=== PATIENT | female | born 1980 | race Caucasian/White ===

== ENCOUNTER → 2021-03-04 15:55 | Observation (INO) ==
[2021-03-04 13:20] LABS: Bacteria,Urine Few per hpf (None-Few); Bilirubin,Urine Negative (Negative); Blood,Urine Negative (Negative); Clarity,Urine Clear (Clear); Color,Urine Light-Yellow (Yellow); Glucose,Urine (UA) 50 mg/dL (Normal); Ketones,Urine Negative (Negative); Leukocyte Esterase,Urine Negative (Negative); Mucus,Urine Few per lpf (None-Few); Nitrite,Urine Negative (Negative); PH,Urine 6.5 pH Units (5.0-8.0); Protein,Urine Negative (Neg-Trace); RBC,Urine 0-3 per hpf (0-3); Specific Gravity,Urine 1.013 (1.010-1.025); Squamous Epithelial Cell,Urine Few per hpf (None-Few); WBC,Urine 0-3 per hpf (0-3)
[2021-03-04 15:17] LABS: Hematocrit 36.4 % (35.3-44.9); Hemoglobin 11.7 g/dL (11.5-15.4); Mean Corpuscular HGB Conc 32.1 g/dL (31.6-35.5); Mean Corpuscular Hemoglobin 27.7 pg (28.0-33.3); Mean Corpuscular Volume 86.3 fL (83.0-100.0); Mean Platelet Volume 10.6 fL (9.4-12.4); Platelet Count 205 K/mcL (140-400); Red Blood Count 4.22 M/mcL (3.82-4.97); Red Cell Distribution Width 12.9 % (11.5-14.5); White Blood Count 11.1 K/mcL (4.3-11.1)
[~2021-03-04 15:55] MED LIST: 0.9 % Sodium Chloride 1,000 ML IVC ONE; 0.9 % Sodium Chloride 1,000 ML ONE
== END | disposition home or self-care (01) ==
LOC: 1NENULAB
PROVIDERS: ADMIT Obstetrics & Gynecology; ATTEND Obstetrics & Gynecology

== ENCOUNTER 2021-04-10 06:55 | Inpatient (IN) ==
[2021-04-10] MEDS ORDERED: Oxytocin 20 units/ LR 1000 mL 20 UNIT/1,000 ML BAG IVC ONE (07:28)
[2021-04-10] MEDS ORDERED: Ringers Solution, Lactated 1,000 ML IVC ONE (07:28)
[2021-04-10] MEDS ORDERED: CeFAZolin Syr 3,000MG/30 ML 3,000 MG/30 ML SYRINGE IVPB ONE (07:28)
[2021-04-10] MEDS ORDERED: Famotidine 20 MG/2 ML VIAL IVP ONE (07:28)
[2021-04-10] MEDS ORDERED: Metoclopramide 10 MG/2 ML VIAL IVP ONE (07:28)
[2021-04-10] MEDS ORDERED: Ringers Solution, Lactated 1,000 ML ONE (07:29)
[2021-04-10] MEDS ORDERED: Oxytocin 20 units/ LR 1000 mL 20 UNIT/1,000 ML BAG IVC SCH ×2 (07:30→14:36)
[2021-04-10] MEDS ORDERED: Ringers Solution, Lactated 1,000 ML IVC SCH (07:30)
[2021-04-10 08:08] LABS: Basophils % 0.2 %; Eosinophils # 0.1 K/mcL (0.0-0.6); Eosinophils % 0.5 %; Hematocrit 33.2 % (35.3-44.9); Hemoglobin 10.6 g/dL (11.5-15.4); Immature Granulocytes % 0.5 % (0-4); Lymphocytes % 18.4 %; Mean Corpuscular HGB Conc 31.9 g/dL (31.6-35.5); Mean Corpuscular Hemoglobin 26.2 pg (28.0-33.3); Mean Corpuscular Volume 82.2 fL (83.0-100.0); Mean Platelet Volume 10.6 fL (9.4-12.4); Monocytes # 0.9 K/mcL (0.0-1.3); Monocytes % 8.5 %; Neutrophils # 7.9 K/mcL (1.6-8.9); Platelet Count 217 K/mcL (140-400); Red Blood Count 4.04 M/mcL (3.82-4.97); Red Cell Distribution Width 13.7 % (11.5-14.5); Segmented Neutrophils % 71.9 %
[2021-04-10 08:37] LABS: Influenza A PCR Negative (Negative); Influenza B PCR Negative (Negative); Resp. Syncytial Virus PCR Negative (Negative); SARS-CoV-2 by PCR (In House) Negative (Negative)
[2021-04-10] MEDS ORDERED: Promethazine 6.25 MG in Water for inj. (sterile) 20 ML IVPB PRN (08:45)
[2021-04-10] MEDS ORDERED: Ondansetron 4 MG/2 ML VIAL IVP PRN ×2 (08:45→14:36)
[2021-04-10] MEDS ORDERED: *HR* HYDROmorphone PF 0.5 MG/0.5 ML SYRINGE IVP PRN (08:45)
[2021-04-10] MEDS ORDERED: *HR* FentaNYL (PF) 100 MCG/2 ML VIAL ONE (09:06)
[2021-04-10] MEDS ORDERED: EPHEDrine 50 MG/ML VIAL ONE (09:06)
[2021-04-10] MEDS ORDERED: *HR* Morphine Sulfate/PF 10 MG/10 ML AMPUL ONE (09:06)
[2021-04-10] MEDS ORDERED: Ondansetron 4 MG/2 ML VIAL ONE (09:07)
[2021-04-10] MEDS ORDERED: Ketorolac 30 MG/ML VIAL ONE (09:12)
[2021-04-10] MEDS ORDERED: Acetaminophen IV 1,000 MG/100 ML BAG IVPB ONE (09:12)
[2021-04-10] MEDS ORDERED: Azithromycin 500 MG in 0.9 % Sodium Chloride 250 ML IVPB ONE (09:46)
[2021-04-10 12:31] LABS: Amphetamine Screen,Urine Negative ng/mL (Cutoff=1000); Barbiturate Screen,Urine Negative ng/mL (Cutoff=200); Benzodiazepines Screen,Urine Negative ng/mL (Cutoff=200); Cannabinoid Screen,Urine Negative ng/mL (Cutoff = 50); Cocaine Screen,Urine Negative ng/mL (Cutoff= 300); Opiate Screen,Urine Negative ng/mL (Cutoff=300); Phencyclidine Screen,Urine Negative ng/mL (Cutoff=25)
[2021-04-10] MEDS ORDERED: Simethicone 80 MG TAB.CHEW PO PRN (14:36)
[2021-04-10] MEDS ORDERED: Rho Immune Globulin 1,500 UNIT SYRINGE IM ONE (14:36)
[2021-04-10] MEDS ORDERED: Metoclopramide 10 MG/2 ML VIAL IVP PRN (14:36)
[2021-04-10] MEDS: metroNIDAZOLE 500 MG TABLET PO SCH ×2 (17:44→20:02)
[2021-04-10] MEDS: cephALEXin 500 MG CAPSULE PO SCH ×2 (17:44→20:03)
[2021-04-10] MEDS: Ibuprofen 600 MG TABLET PO SCH (17:44)
[2021-04-10] MEDS: Acetaminophen 325 MG TABLET PO SCH (19:54)
[2021-04-10] MEDS: *HR* OxyCODONE Immed Rel 5 MG TABLET PO PRN (19:55)
[2021-04-10] MEDS: *HR* Enoxaparin 60 MG/0.6 ML SYRINGE SQ SCH (20:02)
[2021-04-11] MEDS: *HR* OxyCODONE Immed Rel 5 MG TABLET PO PRN ×5 (00:06→17:57)
[2021-04-11] MEDS: Ibuprofen 600 MG TABLET PO SCH ×4 (00:06→20:23)
[2021-04-11] MEDS: FLUoxetine HCl 10 MG CAPSULE PO SCH ×2 (00:06→20:23)
[2021-04-11] MEDS: Acetaminophen 325 MG TABLET PO SCH ×2 (04:20→14:13)
[2021-04-11] MEDS: *HR* Enoxaparin 60 MG/0.6 ML SYRINGE SQ SCH (04:20)
[2021-04-11 05:28] LABS: Basophils % 0.1 %; Eosinophils # 0.1 K/mcL (0.0-0.6); Eosinophils % 0.4 %; Hematocrit 29.3 % (35.3-44.9); Hemoglobin 9.2 g/dL (11.5-15.4); Immature Granulocytes % 0.6 % (0-4); Lymphocytes # 2.9 K/mcL (0.6-4.6); Lymphocytes % 22.8 %; Mean Corpuscular HGB Conc 31.4 g/dL (31.6-35.5); Mean Corpuscular Hemoglobin 26.3 pg (28.0-33.3); Mean Corpuscular Volume 83.7 fL (83.0-100.0); Mean Platelet Volume 10.9 fL (9.4-12.4); Monocytes # 1.2 K/mcL (0.0-1.3); Monocytes % 9.4 %; Neutrophils # 8.4 K/mcL (1.6-8.9); Platelet Count 225 K/mcL (140-400); Red Cell Distribution Width 13.8 % (11.5-14.5); Segmented Neutrophils % 66.7 %; White Blood Count 12.7 K/mcL (4.3-11.1)
[2021-04-11] MEDS: cephALEXin 500 MG CAPSULE PO SCH ×3 (08:09→20:22)
[2021-04-11] MEDS: Prenatal Vit/FA 1 EACH TABLET PO SCH (08:09)
[2021-04-11] MEDS: metroNIDAZOLE 500 MG TABLET PO SCH ×3 (08:09→20:22)
[2021-04-11] MEDS: Cholecalciferol (D-3) 1,000 UNIT (25MCG) TABLET PO SCH (08:10)
[2021-04-11] MEDS ORDERED: NON-FORMULARY MEDICATION 1 EACH EACH (Prenat 115/Iron Fum/Folic/Dss [Prenatal 19 Tablet] 1 PO SCH (09:00)
[2021-04-11] MEDS ORDERED: *HR* OxyCODONE Immed Rel 5 MG TABLET PO PRN (15:14)
[2021-04-12] MEDS: Ibuprofen 600 MG TABLET PO SCH ×2 (02:50→10:56)
[2021-04-12] MEDS: *HR* OxyCODONE Immed Rel 5 MG TABLET PO PRN ×2 (03:03→08:49)
[2021-04-12] MEDS: Cholecalciferol (D-3) 1,000 UNIT (25MCG) TABLET PO SCH (08:48)
[2021-04-12] MEDS: Prenatal Vit/FA 1 EACH TABLET PO SCH (08:49)
[2021-04-12] MEDS: metroNIDAZOLE 500 MG TABLET PO SCH (08:49)
[2021-04-12] MEDS: Acetaminophen 325 MG TABLET PO SCH (08:49)
[2021-04-12] MEDS: cephALEXin 500 MG CAPSULE PO SCH (08:49)
[2021-04-12 09:24] VITALS: BP 110/74; PULSE 79; TEMP 98.8; O2SAT 99
[2021-04-12 09:39] LABS: Hematocrit 30.4 % (35.3-44.9); Hemoglobin 9.7 g/dL (11.5-15.4)
== END 2021-04-12 11:25 | disposition home or self-care (01) | DRG 788 ==
LOC: 1NENULAB 06:55 → 1NENUOBS 14:18
PROVIDERS: ADMIT Obstetrics & Gynecology; ATTEND Obstetrics & Gynecology